=== PATIENT | female | born 1980 | race American Indian/Alaskan Native ===

== ENCOUNTER 2021-04-24 20:57 | Emergency (ER) | payer SELFPAY ==
[2021-04-24 21:42] VITALS: BP 134/80
== END 2021-04-25 02:30 | disposition left against medical advice (07) ==
LOC: ED 20:57
DX: O20.9 Hemorrhage in early pregnancy, unspecified (principal); Z53.21 Procedure and treatment not carried out due to patient leaving prior to being seen by health care provider; Z3A.09 9 weeks gestation of pregnancy